=== PATIENT | female | born 1955 | race Caucasian/White ===

== ENCOUNTER 2017-04-16 23:29 | Emergency (ER) | payer BC ==
[~2017-04-16] VITALS: Ht 157.5 cm; Wt 57.6 kg
[~2017-04-16 23:29] MED LIST: CALC-323 PO; ESTR0.3T PO; GLUC1TAB94 PO; MAGIC1 PO; MISC4CAP PO; MULT-506 PO; OXYC-57 PO; PANT40TA PO
[2017-04-16 23:31] VITALS: TEMP 36.3; Ht 157.5 cm; Wt 57.6 kg
[2017-04-16] MEDS ORDERED: KETOROLAC TROMETHAMINE 30 MG/ML VIAL IV STA (23:48)
[2017-04-17] MEDS ORDERED: SODIUM CHLORIDE 0.9% 1000ML 1,000 ML IV ONE
[2017-04-17] MEDS ORDERED: MoRPHine SULFATE 4 MG/ML 1 ML CARP\\VIAL IV ONE
[2017-04-17 00:05] LABS: MANUAL MICROSCOPIC REQUIRED? NO; REVIEW REQ? NO; URINE APPEARANCE CLOUDY (CLEAR); URINE BILIRUBIN NEG (NEG); URINE COLOR YELLOW; URINE EPITHELIAL CELL AUTO >30 /lpf (0-5); URINE NITRITE NEG (NEG); URINE PH 7.5 (4.5-7.5); URINE SPECIFIC GRAVITY 1.019 (1.000-1.030); UROBILINOGEN NEG (NEG); ZZUR CULT IF INDIC CLEAN CATCH NO
[2017-04-17 00:10] LABS: BASO % 0.7 %; BASO ABS # 0.05 K/uL (0-0.2); COMPLETE YES; EOS % 1.6 %; HEMATOCRIT 38.4 % (37-47); IG% 0.1 %; LYMPH % 44.7 %; LYMPH ABS # 3.08 K/uL (1.2-3.4); MEAN CORPUSCULAR HEMOGLOBIN 32.7 pg (25-34); MEAN CORPUSCULAR HGB CONC 34.4 g/dl (32-36); MEAN PLATELET VOLUME 10.2 fL (7.4-10.4); MONO % 6.8 %; NEUT % 46.1 %; PLATELET COUNT 322 K/uL (130-400); RED BLOOD COUNT 4.04 M/uL (4.2-5.4); WHITE BLOOD COUNT 6.89 K/uL (4.8-10.8)
[2017-04-17] MEDS ORDERED: MUPI1CRE TOP (00:10)
[2017-04-17] MEDS ORDERED: HYDROmorphone INJ 0.5 MG/0.5 ML SYR IV STA (00:15)
[2017-04-17 00:35] LABS: BUN/CREATININE RATIO 26.7 (10-20); CALCIUM 9.8 mg/dl (8.5-10.1); CREATININE 0.7 mg/dl (0.60-1.20); POTASSIUM 3.9 mmol/L (3.5-5.1)
[2017-04-17 00:38] LABS: ALB/GLOB RATIO 1.2 (0.9-2)
[2017-04-17] MEDS ORDERED: FLEXERIL HOME PACK 10 MG VIAL PO ONE (02:00)
[2017-04-17] MEDS ORDERED: OXYCODONE IR HOME PACK PO ONE (02:00)
[2017-04-17] MEDS ORDERED: PRED50TA PO (02:11)
[2017-04-17] MEDS ORDERED: CYCL10TA6 PO (02:11)
[2017-04-17] MEDS ORDERED: OXYC1TAB3 PO (02:11)
[2017-04-17 02:35] VITALS: BP 118/80; PULSE 70; O2SAT 99
--- NOTE | 2017-04-17 07:01 | DIAGNOSTIC IMAGING REPORT ---
ABD/PELVIS NO IV OR ORAL CONT CT DOSE: 257.79 mGy.cm HISTORY: Right flank pain Right side back to right lwr abd pain TECHNIQUE: Multiaxial CT images of the abdomen and pelvis were performed without contrast. A dose lowering technique was utilized adhering to the principles of ALARA. COMPARISON STUDY: None. FINDINGS: Lung bases are clear. Operative changes consistent with a prior cholecystectomy. Kidneys negative for calcification or hydronephrosis. Mild postprocedural prominence of the biliary ductal system unchanged from the prior exam. Postoperative changes consistent with laminectomy and fusion of the mid to lower lumbar spine as well as left sacroiliac joint. Bowel pattern overall is nonobstructive. Appendix is removed by history. IMPRESSION: No significant abnormality identified within the abdomen or pelvis. Prior cholecystectomy, appendectomy, and mid to lower lumbar laminectomy and fusion The above report was generated using voice recognition software. It may contain grammatical, syntax or spelling errors. Electronically signed by: Adolfo Siddiqui M.D. 04/17/2017 7:00 AM Dictated Date/Time: 04/17/2017 6:58 AM
--- NOTE | 2017-04-17 22:19 | EMERGENCY ROOM VISIT NOTE ---
History First contact with patient: 23:40 Chief Complaint: FLANK PAIN Stated Complaint: SEVERE PAIN RIGHT SIDE BACK INTO GROIN History of Present Illness The patient is a 61 year old female who presents to the Emergency Room with complaints of right-sided low back pain that radiates into her right groin. The patient states her symptoms began spontaneously around 12 hours ago. She does not recall injury or trauma to explain her symptoms. There is a history of left-sided SI surgical intervention with Dr. Dent. The patient states that she knows that she has right-sided issues, however she is not planning to undergo surgery at the current time. The patient has not taken anything over- the-counter for her symptoms. Her discomfort is constant and does not seem appreciably worse or better with certain position or movements. She has been able to eat and drink as normal. No numbness or paresthesias. No fever or chills. No changes in bowel or bladder control. She rates her discomfort an 8/ 10. Review of Systems More than 10 systems were reviewed and otherwise negative with the exception of history of present illness. Past Medical/Surgical History Medical Problems: (1) Diverticulosis (2) Lumbar stenosis with neurogenic claudication Family History No pertinent family history Social History Smoking Status: Never Smoker Alcohol Use: none Drug Use: none Housing Status: lives with family Current/Historical Medications Scheduled Calcium Citrate-Vitamin D (Citracal Maximum), 2 TAB PO HS Cyclobenzaprine Hcl (Flexeril), 10 MG PO TID Estrogens, Conjugated (Premarin), 0.3 MG PO HS Qhurxvgxyrx-Zwyhhbadknz-Vuemvv (Move Free Joint Health Ad), 1 TAB PO HS Multivitamin (Multivitamin), 1 TAB PO HS Mupirocin Calcium (Topical) (Mupirocin), 1 APPLN TOP UD Oxycodone Immediate Rel Tab (Roxicodone Ir), 1-2 TAB PO Q6 Pantoprazole (Protonix), 40 MG PO BID Prednisone (Prednisone), 50 MG PO DAILY Probiotic Product (Align), 4 MG PO HS Scheduled PRN Diphenhy/Alum/Mag/Sucralfa (Magic Swizzle - Diphenhy/Alum/Mag/Sucralfa), 1 TSP PO Q4H PRN for PRN Physical Exam Vital Signs Date Time Temp Pulse Resp B/P (MAP) Pulse Ox O2 Delivery O2 Flow Rate FiO2 04/17/17 02:35 70 18 118/80 99 Room Air 04/17/17 01:33 62 16 151/76 100 Room Air 04/17/17 00:33 65 16 157/82 100 Room Air 04/16/17 23:31 36.3 82 18 116/77 100 Room Air Physical Exam VITALS: Vitals are noted on the nurse's note and reviewed by myself. Vital signs stable. GENERAL: Well-developed, well-nourished, white female who appears in moderate discomfort secondary to her stated complaint. Patient is cooperative with the examination. . NECK: Supple without nuchal rigidity. No lymphadenopathy. No thyromegaly. Cervical spine is nontender. HEART: Regular rate and rhythm without murmurs gallops or rubs. LUNGS: Clear to auscultation bilaterally without wheezes, rales or rhonchi. No retractions or accessory muscle use. ABDOMEN: Positive normal bowel sounds x 4. Soft, nontender, without masses or organomegaly. No guarding or rebound tenderness. No distinct CVA tenderness MUSCULOSKELETAL: No muscle atrophy, erythema, or edema noted. No significant spinal process or paravertebral tenderness. There is mild left and right SI joint tenderness. Negative straight leg raise. No saddle paresthesias. Full passive range of motion throughout the upper and lower extremities. NEURO: Patient was alert and oriented to person place and time. CN II through XII grossly intact. Deep tendon reflexes 2+ throughout Medical Decision & Procedures ER Provider Diagnostic Interpretation: Preliminary Findings Only See Final Report For Complete Findings CT ABDOMEN & PELVIS Without Contrast: Compared to 04/28/15 No urolithiasis or hydronephrosis. Cholecystectomy may explain extrahepatic biliary dilation, stable in the interval. Colonic diverticula without diverticulitis. Appendix is not identified. No clear inflammation about the tip of the cecum. Hysterectomy Laboratory Results 04/16/17 23:55 Red Blood Count 4.04, Mean Corpuscular Volume 95.0, Mean Corpuscular Hemoglobin 32.7, Mean Corpuscular Hemoglobin Concent 34.4, Mean Platelet Volume 10.2, Neutrophils (%) (Auto) 46.1, Lymphocytes (%) (Auto) 44.7, Monocytes (%) (Auto) 6.8, Eosinophils (%) (Auto) 1.6, Basophils (%) (Auto) 0.7, Neutrophils # (Auto) 3.17, Lymphocytes # (Auto) 3.08, Monocytes # (Auto) 0.47, Eosinophils # (Auto) 0.11, Basophils # (Auto) 0.05 04/16/17 23:55 Test 04/16/17 23:40 04/16/17 23:55 Urine Color YELLOW Urine Appearance CLOUDY (CLEAR) Urine pH 7.5 (4.5-7.5) Urine Specific [place] 1.019 (1.000-1.030) Urine Protein NEG (NEG) Urine Glucose (UA) NEG (NEG) Urine Ketones NEG (NEG) Urine Occult Blood NEG (NEG) Urine Nitrite NEG (NEG) Urine Bilirubin NEG (NEG) Urine Urobilinogen NEG (NEG) Urine Leukocyte Esterase NEG (NEG) Urine WBC (Auto) 1-5 /hpf (0-5) Urine RBC (Auto) 0-4 /hpf (0-4) Urine Hyaline Casts (Auto) 1-5 /lpf (0-5) Urine Epithelial Cells (Auto) >30 /lpf (0-5) Urine Bacteria (Auto) NEG (NEG) White Blood Count 6.89 K/uL (4.8-10.8) Red Blood Count 4.04 M/uL (4.2-5.4) Hemoglobin 13.2 g/dL (12.0-16.0) Hematocrit 38.4 % (37-47) Mean Corpuscular Volume 95.0 fL (80-100) Mean Corpuscular Hemoglobin 32.7 pg (25-34) Mean Corpuscular Hemoglobin Concent 34.4 g/dl (32-36) Platelet Count 322 K/uL (130-400) Mean Platelet Volume 10.2 fL (7.4-10.4) Neutrophils (%) (Auto) 46.1 % Lymphocytes (%) (Auto) 44.7 % Monocytes (%) (Auto) 6.8 % Eosinophils (%) (Auto) 1.6 % Basophils (%) (Auto) 0.7 % Neutrophils # (Auto) 3.17 K/uL (1.4-6.5) Lymphocytes # (Auto) 3.08 K/uL (1.2-3.4) Monocytes # (Auto) 0.47 K/uL (0.11-0.59) Eosinophils # (Auto) 0.11 K/uL (0-0.5) Basophils # (Auto) 0.05 K/uL (0-0.2) RDW Standard Deviation 43.4 fL (36.4-46.3) RDW Coefficient of Variation 12.5 % (11.5-14.5) Immature Granulocyte % (Auto) 0.1 % Immature Granulocyte # (Auto) 0.01 K/uL (0.00-0.02) Anion Gap 7.0 mmol/L (3-11) Est Creatinine Clear Calc Drug Dose 65.9 ml/min Estimated GFR () 107.6 Estimated GFR (Non- 92.9 BUN/Creatinine Ratio 26.7 (10-20) Calcium Level 9.8 mg/dl (8.5-10.1) Total Bilirubin 0.3 mg/dl (0.2-1) Aspartate Amino Transf (AST/SGOT) 14 U/L (15-37) Alanine Aminotransferase (ALT/SGPT) 19 U/L (12-78) Alkaline Phosphatase 84 U/L (45-117) Total Protein 7.0 gm/dl (6.4-8.2) Albumin 3.9 gm/dl (3.4-5.0) Globulin 3.1 gm/dl (2.5-4.0) Albumin/Globulin Ratio 1.2 (0.9-2) Lipase 264 U/L (73-393) Medications Administered Medications (Trade) Dose Ordered Sig/Sylvia Route Start Time Stop Time Status Last Admin Dose Admin Sodium Chloride 1,000 ml @ 999 mls/hr Q1H1M ONCE IV 04/17/17 00:00 04/17/17 01:00 DC 04/17/17 00:00 999 MLS/HR Ketorolac Tromethamine (Toradol Inj) 30 mg NOW STAT IV 04/16/17 23:48 04/16/17 23:50 DC 04/17/17 00:00 30 MG Morphine Sulfate (MoRPHine SULFATE INJ) 4 mg NOW ONCE IV 04/17/17 00:00 04/17/17 00:01 DC 04/17/17 00:00 4 MG Hydromorphone HCl (Dilaudid Inj) 0.5 mg NOW STAT IV 04/17/17 00:15 04/17/17 00:16 DC 04/17/17 00:21 0.5 MG Oxycodone HCl (Roxicodone Immediate Rel 5MG Home Pack) 1 homepack UD ONCE PO 04/17/17 02:00 12 02:01 DC 04/17/17 02:27 1 HOMEPACK Cyclobenzaprine HCl (FLEXERIL 10MG Home Pack) 1 homepack UD ONCE PO 04/17/17 02:00 04/17/17 02:01 DC 04/17/17 02:27 1 HOMEPACK ED Course Physical exam and history were performed. Nursing notes, EMR, and Medication List were personally reviewed. Patient appears to have right-sided back pain that began spontaneously earlier this morning. The patient does not have injury or trauma to explain her symptoms. She does report a history of chronic back pain that has required surgery in the past. The patient does not have a history of stones. IV access was established and labs were obtained. Because of her discomfort I did elect to perform CT scan. The patient was given IV fluids and IV pain medication as above. The patient's blood work is as above and was reviewed. She does not have a significantly elevated white blood cell count, gross anemia, bandemia, or significant electrolyte imbalance. Lipase and transaminases are nondiagnostic. CT scan is as above and is essentially without acute findings. Her remaining blood work and urine is nondiagnostic. The patient felt much better on reevaluation, and was much were comfortable after pain medication here. She continues with some minor discomfort, but repeat back and abdominal exam continues without signs of an acute surgical process. The patient has followed with or the spine in the past, and I suspect her symptoms are musculoskeletal. I do recommend that she follow back with her surgeon. I will give her a course of oxycodone, Flexeril, and prednisone. She was otherwise invited back to the ER with any new, worsening, or concerning symptoms. She is pleased with plan of care was discharged home with family who is acting as the stacker driver. The chart was completed utilizing [employer] Voice Recognition Software. Grammatical errors, random word insertions, pronoun errors, and incomplete sentences are an occasional consequence of this system due to software limitations, ambient noise, and hardware issues. Any formal questions or concerns about the content, text, or information contained within the body of this dictation should be directly addressed to the provider for clarification. . Medical Decision Differential diagnosis: Etiologies such as renal colic, appendicitis, diverticulitis, mesenteric ischemia, aortic pathology, infections, inflammatory bowel disease, PUD, biliary pathology, UTI, as well as others were entertained. Impression Primary Impression: Right-sided back pain Departure Information Dispostion Home / Self-Care Condition GOOD Prescriptions Cyclobenzaprine Hcl (FLEXERIL) 10 Mg Tab 10 MG PO TID for 7 Days, #21 TAB Prov: Chidi Wesis PA-C 04/17/17 Prednisone (Prednisone) 50 Mg Tab 50 MG PO DAILY for 4 Days, #4 TAB Prov: Chidi Weiss PA-C 04/17/17 Oxycodone Immediate Rel Tab (ROXICODONE IR) 5 Mg Tab 1-2 TAB PO Q6 for Pain, #24 TAB Prov: Chidi Weiss PA-C 04/17/17 Referrals eDrek Dent,D.O. Forms HOME CARE DOCUMENTATION FORM, IMPORTANT VISIT INFORMATION Patient Instructions [facility] Additional Instructions You were seen and evaluated today on an emergency basis only. This is not a substitute for, or an effort to provide, complete comprehensive medical care. It is not possible to recognize and treat all injuries or illnesses in a single emergency department visit. For this reason it is recommended that you followup with your surgeon this week for ongoing care and evaluation. For baseline pain relief you may alternate ibuprofen and acetaminophen every 4 hours for pain control. Take 600 mg ibuprofen (Advil) and then 4 hours later take 1000 mg acetaminophen (Tylenol). Do not take more than 3000 mg acetaminophen in a single day. Oxycodone (OxyIR) 5mg: Take ONE or TWO pills every SIX hours for breakthrough pain. Avoid alcohol, operating machinery or dangerous equipment, working on ladders or roofs, DRIVING, or situations where being under the influence may be dangerous. It is recommended to use an dmba-tju-fmgiebz stool softener such as Colace, 100mg twice daily while taking this medication to avoid constipation. Flexeril 1 tablet up to 3 times a day as needed for muscle spasms. No driving, working, or alcohol use with Flexeril. Take prednisone as prescribed You are welcome to return to the emergency department anytime with new, worsening, or concerning symptoms.
== END 2017-04-17 02:37 | disposition home or self-care (01) ==
LOC: C.EDB 23:30
DX: M54.5 Low back pain (principal); R10.31 Right lower quadrant pain; K57.90 Diverticulosis of intestine, part unspecified, without perforation or abscess without bleeding; M48.062 Spinal stenosis, lumbar region with neurogenic claudication

== ENCOUNTER 2017-09-29 10:23 | Day surgery (SDC) | payer BC, OTHER ==
[2017-08-01 07:22] VITALS: BMI 23.0
--- NOTE | 2017-09-20 13:49 | DIAGNOSTIC IMAGING REPORT ---
CHEST 2 VIEWS ROUTINE HISTORY: 62 years-old Female PRE-OP preoperative exam. No acute chest complaints COMPARISON: Chest radiograph 07/30/2015 TECHNIQUE: PA and lateral views of the chest FINDINGS: Cardiomediastinal and hilar silhouettes are within normal limits. Lungs are mildly hyperinflated. There is no pneumothorax, pleural effusion, focal airspace consolidation or overt pulmonary edema. Mild biapical pleural-parenchymal scarring. Degenerative changes of the shoulders and spine. Partially imaged fusion hardware of the lumbar spine. Cholecystectomy clips noted. IMPRESSION: Mild hyperinflation without acute process The above report was generated using voice recognition software. It may contain grammatical, syntax or spelling errors. Electronically signed by: Kana Ashley M.D. 09/20/2017 1:48 PM Dictated Date/Time: 09/20/2017 1:46 PM
[2017-09-20 14:36] LABS: BASO % 0.6 %; BASO ABS # 0.04 K/uL (0-0.2); EOS % 1.5 %; EOS ABS # 0.11 K/uL (0-0.5); HEMATOCRIT 39.6 % (37-47); HEMOGLOBIN 13.7 g/dL (12.0-16.0); IG# 0.01 K/uL (0.00-0.02); LYMPH % 43.9 %; LYMPH ABS # 3.15 K/uL (1.2-3.4); MEAN CELL VOLUME 94.3 fL (80-100); MEAN CORPUSCULAR HEMOGLOBIN 32.6 pg (25-34); MEAN CORPUSCULAR HGB CONC 34.6 g/dl (32-36); MEAN PLATELET VOLUME 10.9 fL (7.4-10.4); MONO % 4.5 %; MONO ABS # 0.32 K/uL (0.11-0.59); NEUT % 49.4 %; NEUT ABS # 3.54 K/uL (1.4-6.5); PLATELET COUNT 363 K/uL (130-400); RED CELL DISTRIBUTION WIDTH CV 12.7 % (11.5-14.5); RED CELL DISTRIBUTION WIDTH SD 43.7 fL (36.4-46.3); WHITE BLOOD COUNT 7.17 K/uL (4.8-10.8)
[2017-09-20 15:07] LABS: CALCIUM 8.9 mg/dl (8.5-10.1); CREATININE 0.68 mg/dl (0.60-1.20); POTASSIUM 3.8 mmol/L (3.5-5.1)
[~2017-09-29] VITALS: Ht 157.5 cm; Wt 58.2 kg
[~2017-09-29 10:23] MED LIST changes: +ACETAMINOPHEN 500 MG TAB PO SCH; +ATROPINE SULFATE 0.1 MG/ML 5ML SYR IV PRN; +CLINDAMYCIN 600 MG/54 ML D5W 54 ML IV SCH; +CeleBREX 200 MG CAP PO SCH; +EpHEDrine SULFATE INJ 50 MG/ML AMP IV PRN; +FENTANYL CITRATE INJ 50 MCG/1 ML 2 ML VIAL IV PRN; +GABAPENTIN 600 MG PO SCH; +HYDROmorphone INJ 0.5 MG/0.5 ML SYR IV PRN; +LABETALOL HCL IV 5 MG/ML 20ML IV PRN; +LACTATED RINGER'S 1000ML 1,000 ML IV SCH; +ONDANSETRON INJ 2 MG/ML 2 ML VIAL IV PRN; -OXYC-57 PO; +PHENYLEPHRINE 100MCG/ML 5ML SYR IV PRN; +PROMETHAZINE HCL INJ 12.5 MG in SODIUM CHLORIDE 0.9% 50ML 50 ML IV PRN; +VANCOMYCIN 1GM/270ML NSS IV SCH
[2017-09-29 10:45] VITALS: BP 129/69; PULSE 68; TEMP 36.4; O2SAT 98; Ht 157.5 cm; Wt 58.2 kg
[2017-09-29] MEDS ORDERED: NURSING VERBAL MED ORDER ONE (11:15)
--- NOTE | 2017-09-29 13:57 | History & Physical Bridge Note ---
H&P Re-Evaluation Bridge Note: I have examined the patient, reviewed the History & Physical and in the interval since the performance of the History & Physical I have noted the following changes of clinical significance: No changes noted
--- NOTE | 2017-09-29 13:58 | History and Physical ---
History & Physical Date September 29, 2017. Chief Complaint Sacroiliitis History of Present Illness The patient is a 62 year old female with complaints of right sacroiliitis Past Medical/Surgical History Medical Problems: (1) Diverticulosis (2) Lumbar stenosis with neurogenic claudication Additional History Hepatic Disease: No Endocrine Disorder: No Kidney Disease: No Hypertension: No Heart Disease: No Bleeding Tendencies: No Infectious Diseases: No Allergies Coded Allergies: Amoxicillin (Verified Allergy, Severe, ANAPHYLAXIS, 09/29/17) Clavulanic Acid (Verified Allergy, Severe, ANAPHYLAXIS, 09/29/17) Metronidazole (Verified Adverse Reaction, Mild, VOMITING, 09/29/17) Sulfa Antibiotics (Verified Adverse Reaction, Mild, VOMITING, 09/29/17) Home Medications Scheduled Calcium Citrate-Vitamin D (Citracal Maximum), 2 TAB PO HS Estrogens, Conjugated (Premarin), 0.3 MG PO HS Xefbiymwgeo-Ymrmwesbuff-Npokdz (Move Free Joint Health Ad), 1 TAB PO HS Multivitamin (Multivitamin), 1 TAB PO HS Pantoprazole (Protonix), 40 MG PO BID Probiotic Product (Align), 4 MG PO HS Scheduled PRN Diphenhy/Alum/Mag/Sucralfa (Magic Swizzle - Diphenhy/Alum/Mag/Sucralfa), 1 TSP PO Q4H PRN for PRN Physical Examination Skin: warm/dry, no rash Eyes: normal inspection, EOMI, sclerae normal ENT: normal ENT inspection, pharynx normal Head: normocephalic, atraumatic Neck: supple, no adenopathy, trachea midline Respiratory/Chest: lungs clear, normal breath sounds, no respiratory distress Cardiovascular: regular rate, rhythm, no edema, no murmur Abdomen / GI: normal bowel sounds, non tender Back: normal inspection Extremities: normal inspection, normal range of motion Neurologic/Psych: no motor/sensory deficits, alert, normal reflexes, oriented x 3 Diagnosis Right sacroiliitis Plan of Treatment Right SI joint fusion
[2017-09-29] MEDS ORDERED: BACITRACIN 50000 UNIT VIAL ONE (14:40)
[2017-09-29] MEDS ORDERED: PROPOFOL IV EMULSION 10 MG/ML 20 ML VIAL ONE (14:53)
[2017-09-29] MEDS ORDERED: FENTANYL CITRATE INJ 50 MCG/1 ML 2 ML VIAL ONE ×2 (14:53→16:09)
[2017-09-29] MEDS ORDERED: ONDANSETRON INJ 2 MG/ML 2 ML VIAL ONE (14:53)
[2017-09-29] MEDS ORDERED: ROCURONIUM BROMIDE 10 MG/ML 5 ML VIAL ONE (14:53)
[2017-09-29] MEDS ORDERED: LIDOCAINE HCL 2% 2 ML VIAL (20MG/ML) ONE (14:53)
[2017-09-29] MEDS ORDERED: DEXAMETHASONE SOD INJ 4 MG/ML VIAL ONE (14:53)
[2017-09-29] MEDS ORDERED: MIDAZOLAM HCL 1 MG/ML 2ML VIAL ONE (14:53)
[2017-09-29] MEDS ORDERED: BUPIVACAINE 0.5 % 5 MG/1 ML PF 10ML VIAL ONE (15:02)
[2017-09-29] MEDS ORDERED: EpINEphrine INJ 1MG/ML AMP 1 MG/ML AMP ONE (15:02)
[2017-09-29] MEDS ORDERED: NEOSTIGMINE METHYLSULFATE 1 MG/ML 10ML VIAL ONE (15:31)
[2017-09-29] MEDS ORDERED: GLYCOPYRROLATE INJ 0.2 MG/ML VIAL ONE (15:31)
--- NOTE | 2017-09-29 15:47 | [facility] Operative Report ---
Operative Report Operative Date September 29, 2017. Pre-Operative Diagnosis Sacroiliitis Post-Operative Diagnosis Sacroiliitis Procedure(s) Performed Right SI joint fusion Surgeon Jailene Utilization Reviewer Surgeon(sRyan Connelly Estimated Blood Loss 10 Description of Procedure Patient was met with preoperatively case discussed all questions addressed. After informed consent obtained patient was taken to the operative suite underwent intubation and placed in a prone position on the Edd table chest pad and hip bolsters. This time the right upper buttock and thigh was prepped and draped in the normal sterile fashion. With the assistance of fluoroscopy and AP and lateral outlet and lateral planes were identified the right SI joint. A proximally 3 cm incision was placed along the posterior sacral slope on the right upper buttock. And then placed a K wire through the incision across the proximal portion of the right SI joint. Verify our position in AP lateral inlet outlet views. I then dilated up to 10 mm cannula. I drilled across the K wire and placed a 45 mm DARDEN-coated slotted screw filled with local autograft and BMP across the joint. An outrigger guide was then placed to guide a distal K wire. This was done with fluoroscopic visualization. Again I dilated to a 10 mm cannula drilled across the SI joint and placed a 40 mm DARDEN- coated slotted screw and filled with DBM and autograft. A third the distal screw was then placed in the same fashion. The screw was 35 mm in size again DARDEN -coated with DBM and autograft. All screws demonstrated excellent alignment and fit. Incision was then copiously irrigated closed with subcutaneous Vicryl 4 Monocryl for fashion closure Steri-Strips sterile dressings placed. Patient will continue to PACU stable discrete please note Jonatan Connelly was present throughout the entire procedure involved the patient positioning complex portions of the surgery and fashion closure. I attest to the content of the Intraoperative Record and any orders documented therein. Any exceptions are noted below.
[2017-09-29] MEDS ORDERED: OXYC-57 PO (15:49)
--- NOTE | 2017-09-29 15:50 | Discharge Instructions ---
Discharge Instructions Date of Service September 29, 2017. Admission Reason for Admission: Si Joint Dysfunction Discharge Discharge Diagnosis / Problem: sacralilitis Discharge Goals Goal(s): Decrease discomfort Activity Recommendations Activity Limitations: as noted below Exercise/Sports Limitations: until after follow-up appointment Shower/Bathe: may shower/bathe in 3 days Weightbearing Status: Right toe touch . Instructions / Follow-Up Instructions / Follow-Up follow up in 2 weeks, TTWB with walker RLE Current Hospital Diet Patient's current hospital diet: Discharge Diet Recommended Diet: Regular Diet Procedures Procedures Performed: Right SI joint fusion Pending Studies Studies pending at discharge: no Medical Emergencies . Who to Call and When: Medical Emergencies: If at any time you feel your situation is an emergency, please call 911 immediately. . Non-Emergent Contact Non-Emergency issues call your: Primary Care Provider . "Provider Documentation" section prepared by Derek Dent. .
[2017-09-29] MEDS ORDERED: OXYCODONE HCL IR 5 MG TAB (IMMEDIATE RELEASE) PO PRN (16:00)
[2017-09-29] MEDS ORDERED: ACETAMINOPHEN 650 MG SUPP PR PRN (16:00)
[2017-09-29] MEDS ORDERED: HYDROmorphone INJ 0.5 MG/0.5 ML SYR IV PRN (16:00)
[2017-09-29] MEDS ORDERED: ACETAMINOPHEN 325 MG TAB PO PRN (16:00)
[2017-09-29] MEDS ORDERED: KETOROLAC TROMETHAMINE 15 MG/ML VIAL IV. PRN (16:00)
--- NOTE | 2017-09-29 16:02 | DIAGNOSTIC IMAGING REPORT ---
INTRAOPERATIVE SACRUM 3 VIEWS CLINICAL HISTORY: RT SACROILIAC JOINT FUSION COMPARISON STUDY: Outside conventional radiographic study dated 10/17/1969 FINDINGS: 97 seconds of fluoroscopic time was utilized. 2 intraoperative fluoroscopic spot images are provided for interpretation. There are postsurgical changes of prior lower lumbar discectomies and spinal fusions. 3 horizontally oriented cannulated right sacroiliac screws are visualized. 2 horizontally oriented left sacroiliac screws are visualized. IMPRESSION: Intraoperative radiographs during sacroiliac fusion as described above. Electronically signed by: Corby Barnes M.D. 09/29/2017 4:01 PM Dictated Date/Time: 09/29/2017 3:59 PM
[2017-09-29] MEDS ORDERED: KETOROLAC TROMETHAMINE 30 MG/ML VIAL ONE (16:20)
[2017-09-29] MEDS ORDERED: ACETAMINOPHEN 1000 MG/100 ML IV IV ONE ×2 (16:36→16:45)
[2017-09-29] MEDS ORDERED: ATROPINE SULFATE 0.1 MG/ML 5ML SYR IV PRN (16:45)
[2017-09-29] MEDS ORDERED: EpHEDrine SULFATE INJ 50 MG/ML AMP IV PRN (16:45)
[2017-09-29 17:10] VITALS: BP 121/63; PULSE 59; TEMP 36.4; O2SAT 93
[2017-09-29 17:45] VITALS: BP 127/66; PULSE 70; TEMP 36.3; O2SAT 92
--- NOTE | 2017-09-29 17:56 | Anesthesiology Progress Note ---
Anesthesia Post Op Note Date & Time September 29, 2017 at 17:56 Vital Signs Pain Intensity: 8 Vital Signs Past 12 Hours Date Time Temp Pulse Resp B/P (MAP) Pulse Ox O2 Delivery O2 Flow Rate FiO2 09/29/17 17:00 36.6 64 13 116/59 96 Nasal Cannula 2 09/29/17 16:50 74 20 119/57 98 Nasal Cannula 2 09/29/17 16:40 61 12 119/63 96 Nasal Cannula 2 09/29/17 16:30 65 15 129/74 91 Room Air 09/29/17 16:20 64 14 131/70 100 Oxymask 10 09/29/17 16:10 67 17 148/77 100 Oxymask 10 09/29/17 16:03 36.2 77 16 160/80 100 Oxymask 10 09/29/17 10:45 36.4 68 20 129/69 (89) 98 Room Air Notes Mental Status: alert / awake / arousable, participated in evaluation Nausea / Vomiting: improving with treatment Pain: adequately controlled Airway Patency, RR, SpO2: stable & adequate BP & HR: stable & adequate Hydration State: stable & adequate Anesthetic Complications: no major complications apparent
== END 2017-09-29 18:11 | disposition home or self-care (01) ==
LOC: C.ACU 10:23
PROVIDERS: ATTEND Orthopaedic Surgery Orthopaedic Surgery of the Spine
DX: M46.1 Sacroiliitis, not elsewhere classified (principal); Z90.89 Acquired absence of other organs; Z90.710 Acquired absence of both cervix and uterus; Z90.49 Acquired absence of other specified parts of digestive tract; Z88.1 Allergy status to other antibiotic agents; Z88.2 Allergy status to sulfonamides; Z87.891 Personal history of nicotine dependence

== ENCOUNTER 2021-11-22 08:17 | Observation (INO) ==
--- NOTE | 2021-11-04 10:28 | PAT Medication Instructions ---
Medication Instructions Date of Service November 04, 2021 Home Medications Bifidobacterium infantis 4 mg capsule (Align) 4 mg PO HS calcium phosphate 250 mg-vit D3 12.5 mcg (500 unit) chewable tablet (Citracal-D3 Gummies) 1 tab PO QPM cartilage 40 mg-collagen II-boron 5 mg-hyaluronate sod 3.3 mg tablet (Move Free Ultra Triple Action (boron)) 1 tab PO QPM conjugated estrogens 0.3 mg tablet (Premarin) 0.3 mg PO QPM multivit with bmaqcnnm-vmkw-MF-lutein 8 mg iron-400 mcg-300 mcg tablet (Centrum Silver Women) 1 tab PO QPM pantoprazole 20 mg tablet,delayed release (Protonix) 20 mg PO QPM aspirin 81 mg capsule 81 mg PO HS atorvastatin 20 mg tablet 20 mg PO HS ASK your prescriber and surgeon conjugated estrogens 0.3 mg tablet (Premarin) 0.3 mg PO QPM aspirin 81 mg capsule 81 mg PO HS STOP taking 2 weeks before surgery cartilage 40 mg-collagen II-boron 5 mg-hyaluronate sod 3.3 mg tablet (Move Free Ultra Triple Action (boron)) 1 tab PO QPM DO NOT take the morning of surgery calcium phosphate 250 mg-vit D3 12.5 mcg (500 unit) chewable tablet (Citracal-D3 Gummies) 1 tab PO QPM Take evening before surgery Bifidobacterium infantis 4 mg capsule (Align) 4 mg PO HS multivit with amxtwxdd-erin-UO-lutein 8 mg iron-400 mcg-300 mcg tablet (Centrum Silver Women) 1 tab PO QPM pantoprazole 20 mg tablet,delayed release (Protonix) 20 mg PO QPM atorvastatin 20 mg tablet 20 mg PO HS NOTHING TO EAT OR DRINK AFTER MIDNIGHT. Other Notes If you have any questions please call us at [phone] or [phone] or [phone] or [phone]
--- NOTE | 2021-11-08 09:11 | Anesthesiology Consultation ---
Date of Service November 08, 2021 Assessment & Plan (1) Encounter for pre-operative examination: - Pt will be returning another day with stimulator remote to complete EKG. Awaiting EKG. - murmur: Pt denies previous known hx/echo. Discussed case overall and including echo with Dr. Wong who advised PCP obtain echocardiogram prior to surgery. Optimization note completed to be faxed to PCP. He advised nothing additional needed from anesthesia standpoint overall or regarding carotid disease. - surgeon ordered medical clearance and echocardiogram. - neurostimulator device: Pt made aware to bring remote to hospital DOS. - COVID screening: Per assessment on 11/08/2021: Travel screen negative, no known COVID-19 positive contacts or current COVID-19 related symptoms in past 2 weeks. Pt vaccinated. Surgeon arranging preop COVID testing, scheduled 11/18/2021. Awaiting results. Chart Review Chart Review: Pending: Refer to Additional Notes / Consult section and Patient seen in Pre Admission Testing Teaching & Discussion Pre-Anesthesia Teaching/Discussion Notes: Instructed NPO after midnight before surgery, except medications with 15 cc of water. Medication instructions provided according to the PAT guidelines. History Surgery Operation Date: 11/22/21 13:25 Proposed Procedures p C5-C7 Anterior Cervical Discectomy and Fusion Spinal Cord Monitoring - Momo Dent, DO Height/Weight Height: 5 ft 1.5 in Weight: 56.5 kg Allergies Allergy/AdvReac Type Severity Reaction Status Date / Time amoxicillin Allergy Severe ANAPHYLAXIS Verified 12/11/20 10:46 clavulanic acid Allergy Severe ANAPHYLAXIS Verified 12/11/20 10:46 metronidazole AdvReac Mild VOMITING Verified 12/11/20 10:46 Sulfa (Sulfonamide AdvReac Mild VOMITING Verified 12/11/20 10:46 Antibiotics) Medications Home Medications Medication Instructions Recorded Confirmed Last Taken Bifidobacterium infantis 4 mg 4 mg PO HS 03/25/19 11/04/21 12/10/20 18:00 capsule (Align) calcium phosphate 250 mg-vit D3 1 tab PO QPM 03/25/19 11/04/21 12/06/20 19:00 12.5 mcg (500 unit) chewable tablet (Citracal-D3 Gummies) cartilage 40 mg-collagen II-boron 1 tab PO QPM 03/25/19 11/04/21 11/23/20 19:00 5 mg-hyaluronate sod 3.3 mg tablet (Move Free Ultra Triple Action (boron)) conjugated estrogens 0.3 mg tablet 0.3 mg PO QPM 03/25/19 11/04/21 12/06/20 1 9:00 (Premarin) multivit with 1 tab PO QPM 03/25/19 11/04/21 12/06/20 19:00 vljusqcl-ctal-JO-lutein 8 mg iron-400 mcg-300 mcg tablet (Centrum Silver Women) pantoprazole 20 mg tablet,delayed 20 mg PO QPM 03/25/19 11/04/21 12/06/20 19:00 release (Protonix) aspirin 81 mg capsule 81 mg PO HS 11/04/21 11/04/21 Unknown atorvastatin 20 mg tablet 20 mg PO HS 11/04/21 11/04/21 Unknown Past Medical History Medical History Carotid arterial disease Left ICA 50-69%; right ICA <50% on 11/2020 carotid doppler Chronic back pain Degenerative disc disease GERD (gastroesophageal reflux disease) Stable with medicine Hiatal hernia current Lumbar stenosis Neurostimulator device in situ lower back - placed by Dr. Dent 11/2020 Patient denies h/o stroke, seizures, heart attack, heart failure, DM, HTN, blood clots or blood transfusions. Exercise / Class Metabolic Activity II 4-5 Yardwork/Stairs/Walk up hill (denies CP or SOB with 1 FOS) Past Family History Family History Mother FHx: lung cancer Father FHx: lung cancer Brother FHx: kidney cancer Brother Family history of diabetes mellitus Mother Family history of diabetes mellitus Other FHx: cancer Past Surgical History Surgical History Family history of reaction to anesthesia Father- "slow to wake", PONV History of back surgery X5> L5-S1. History of esophagogastroduodenoscopy (EGD) History of implanted electronic device neurostimulator in lower back - Dr. Dent 12/11/2020: Grade 1 view, MAC3, ETT 7.0 atraumatic x 1. Trial on 12/07/20: Grade 2 view, MAC3, ETT 7.5. No postop issues per anesthesia progress note. History of tonsillectomy and adenoidectomy History of tooth extraction with implants Hx of appendectomy Hx of cholecystectomy Hx of colonoscopy Hx of resection of large bowel from diverticulitis Hx of total hysterectomy S/P fusion of sacroiliac joint 05/06/19: Grade 3 view, MAC3, ETT 7.0. No postop issues per anesthesia progress note. Past Anesthesia History No Hx of Anesthesia Complications and Other (FHx) History of PONV No Hx of PONV and No Hx of Motion Sickness Social History Smoking Status: Former smoker tobacco type: cigarettes Smoking cigarettes per day: 1/2 pk/day Do You Dip or Chew Tobacco: No Smoking End Date: ~20 years ago Hx Alcohol Use: Yes Alcohol type: wine alcohol intake frequency: holidays/special occasions only Hx Substance Use: No substance use type: does not use Review of Systems Patient denies chest pain, shortness of breath, dyspnea on exertion, snoring, witnessed apneas, dizziness, lightheadedness, syncope, fever, chills, cough, wheezing, or palpitations. Physical Exam Vital Signs Vitals BP 127/76 P 80 TEMP 98.0 SP02 98% on RA RESP 17 Physical TMD 3.5 finger breaths Mallampati Score 1 Dentition: intact, multiple implants-pt unsure; crowns-upper front; denies chipped or loose teeth, bridges Lungs: normal respiratory effort. Clear throughout to auscultation, no adventitious breath sounds Cardiac: regular rate and rhythm, 2/6 systolic murmur Carotid arteries: R bruit, < 50% stenosis BRENDEN and 50-69% LICA on 11/2020 carotid doppler Lab Results Anesthesia Preop Results Results Anesthesia Widget: WBC 6.60 K/uL (4.8-10.8) 11/08/21 Hgb 13.1 g/dL (12.0-16.0) 11/08/21 Hct 39.0 % (37-47) 11/08/21 Plt 375 K/uL (130-400) 11/08/21 Na 138 mmol/L (136-145) 11/08/21 K 4.0 mmol/L (3.5-5.1) 11/08/21 Cl 103 mmol/L (98-107) 11/08/21 CO2 28 mmol/L (21-32) 11/08/21 BUN 11 mg/dl (6-23) 11/08/21 Creat 0.69 mg/dl (0.6-1.2) 11/08/21 Glucose Level 107 mg/dl (70-99(Fasting)) H 11/08/21 PT 10.0 Seconds (9.0-12.0) 11/08/21 PTT 26.8 Seconds (21.0-31.0) 11/08/21 INR 0.9 (0.9-1.1) 11/08/21 Urine Color Yellow 11/08/21 Urine Appearance Clear (Clear) 11/08/21 Urine pH 7.0 (4.5-7.5) 11/08/21 Urine Specific Onward 1.003 (1.000-1.030) 11/08/21 Urine Protein Negative (Negative) 11/08/21 Urine Glucose (UA) Negative (Negative) 11/08/21 Urine Ketones Negative (Negative) 11/08/21 Urine Blood Negative (Negative) 11/08/21 Urine Nitrite Negative (Negative) 11/08/21 Urine Bilirubin Negative (Negative) 11/08/21 Urine Urobilinogen Negative (Negative) 11/08/21 Urine Leukocyte Esterase Negative (Negative) 11/08/21 Blood Type A Negative 11/08/21 Antibody Screen NEGATIVE 11/08/21 Testing Chest X-Ray Date: 11/08/21 The cardiomediastinal and hilar silhouettes are within normal limits. Atherosclerosis of the aorta. Hyperinflation. No pneumothorax, pleural effusion, airspace consolidation or overt pulmonary edema. Degenerative changes of the shoulders and spine. Partially imaged lumbar spinal fusion hardware. Cholecystectomy. A spinal stimulator device is noted with leads overlying the midthoracic spine. The leads appear intact. IMPRESSION: No acute process. Other Testing Carotid doppler 12/02/20 L ICA 50-69% stenosis R ICA < 50% stenosis
[~2021-11-22 08:17] MED LIST changes: -ATROPINE SULFATE 0.1 MG/ML 5ML SYR IV PRN; -CALC-323 PO; -CLINDAMYCIN 600 MG/54 ML D5W 54 ML IV SCH; +CLINDAMYCIN/D5W 600 MG/50 ML BAG **Premixed Bag IV SCH; -ESTR0.3T PO; -EpHEDrine SULFATE INJ 50 MG/ML AMP IV PRN; -FENTANYL CITRATE INJ 50 MCG/1 ML 2 ML VIAL IV PRN; +GABAPENTIN 300 MG CAP PO SCH; -GABAPENTIN 600 MG PO SCH; -GLUC1TAB94 PO; -HYDROmorphone INJ 0.5 MG/0.5 ML SYR IV PRN; -LABETALOL HCL IV 5 MG/ML 20ML IV PRN; -LACTATED RINGER'S 1000ML 1,000 ML IV SCH; +LR 15ML/HR IV SCH; -MAGIC1 PO; +MIDAZOLAM HCL 1 MG/ML 2ML VIAL ONE; -MISC4CAP PO; -MULT-506 PO; -ONDANSETRON INJ 2 MG/ML 2 ML VIAL IV PRN; -PANT40TA PO; -PHENYLEPHRINE 100MCG/ML 5ML SYR IV PRN; -PROMETHAZINE HCL INJ 12.5 MG in SODIUM CHLORIDE 0.9% 50ML 50 ML IV PRN; +PROPOFOL IV EMULSION 10 MG/ML 100 ML VIAL IV ONE; -VANCOMYCIN 1GM/270ML NSS IV SCH; +fentaNYL citrate 100 MCG/2 ML VIAL ONE
--- NOTE | 2021-11-22 09:26 | History & Physical Bridge Note ---
Date of Service November 22, 2021 History & Physical Bridge Note I have examined the patient, reviewed the History & Physical and in the interval since the performance of the History & Physical I have noted the following changes of clinical significance: no changes noted
--- NOTE | 2021-11-22 09:27 | History & Physical Report ---
Date of Service November 22, 2021 Assessment & Plan (1) Cervical stenosis of spinal canal: History of Present Illness Chief Complaint: Neck and arm pain Primary Care Provider: Maria Luz Hood DO This is a 66-year-old female known to us with presents with chronic persistent neck and arm pain after failing course of nonoperative care she is here for surgical invention. Allergies Allergy/AdvReac Type Severity Reaction Status Date / Time amoxicillin Allergy Severe ANAPHYLAXIS Verified 11/22/21 08:28 clavulanic acid Allergy Severe ANAPHYLAXIS Verified 11/22/21 08:28 metronidazole AdvReac Mild VOMITING Verified 11/22/21 08:28 Sulfa (Sulfonamide AdvReac Mild VOMITING Verified 11/22/21 08:28 Antibiotics) Home Medications Medication Instructions Recorded Confirmed Type Bifidobacterium infantis 4 mg 4 mg PO HS 03/25/19 11/22/21 History capsule (Align) calcium phosphate 250 mg-vit D3 1 tab PO QPM 03/25/19 11/22/21 History 12.5 mcg (500 unit) chewable tablet (Citracal-D3 Gummies) cartilage 40 mg-collagen II-boron 1 tab PO QPM 03/25/19 11/22/21 History 5 mg-hyaluronate sod 3.3 mg tablet (Move Free Ultra Triple Action (boron)) conjugated estrogens 0.3 mg tablet 0.3 mg PO QPM 03/25/19 11/22/21 History (Premarin) multivit with 1 tab PO QPM 03/25/19 11/22/21 History srlfefvy-jhmk-MB-lutein 8 mg iron-400 mcg-300 mcg tablet (Centrum Silver Women) pantoprazole 20 mg tablet,delayed 20 mg PO QPM 03/25/19 11/22/21 History release (Protonix) aspirin 81 mg capsule 81 mg PO HS 11/04/21 11/22/21 History atorvastatin 20 mg tablet 20 mg PO HS 11/04/21 11/22/21 History Past Med/Surg History Medical History Carotid arterial disease Left ICA 50-69%; right ICA <50% on 11/2020 carotid doppler Chronic back pain Degenerative disc disease GERD (gastroesophageal reflux disease) Stable with medicine Hiatal hernia current Lumbar stenosis Neurostimulator device in situ lower back - placed by Dr. Dent 11/2020 Surgical History Family history of reaction to anesthesia Father- "slow to wake", PONV History of back surgery X5> L5-S1. History of esophagogastroduodenoscopy (EGD) History of implanted electronic device neurostimulator in lower back - Dr. Dent 12/11/2020: Grade 1 view, MAC3, ETT 7.0 atraumatic x 1. Trial on 12/07/20: Grade 2 view, MAC3, ETT 7.5. No postop issues per anesthesia progress note. History of tonsillectomy and adenoidectomy History of tooth extraction with implants Hx of appendectomy Hx of cholecystectomy Hx of colonoscopy Hx of resection of large bowel from diverticulitis Hx of total hysterectomy S/P fusion of sacroiliac joint 05/06/19: Grade 3 view, MAC3, ETT 7.0. No postop issues per anesthesia progress note. Family History Mother FHx: lung cancer Father FHx: lung cancer Brother FHx: kidney cancer Brother Family history of diabetes mellitus Mother Family history of diabetes mellitus Other FHx: cancer Social History Smoking Status: Former smoker Cigarettes Per Day: 1/2 pk/day; Smoking End Date: ~20 years ago; Second Hand Exposure: No; Do You Dip or Chew Tobacco: No; Tobacco Cessation Education Requested by Patient: No Hx Alcohol Use: Yes Alcohol type: wine Hx Substance Use: No Preferred Language: Martiniquais Communication Ability: Effective Customer Service Supervisor Required: No Beliefs That Will Affect Care: None Current Living Situation: Spouse Other Information That Helps Us Care for You: No Feels Safe at Home: Yes Safety Concerns: Feels Safe At This Time Assistive Devices: Glasses Physical Exam Physical Exam: Patient is alert and oriented Heart regular rhythm Lungs clear Results & Data Results & Data ([facility]) Vital Signs (Past 12 Hours) Vital Signs Temp Pulse Resp BP Pulse Ox 11/22/21 08:39 36.8 C 67 18 125/62 99
[2021-11-22] MEDS ORDERED: ATROPINE SULFATE 0.1 MG/ML 10ML SYR IV PRN (09:28)
[2021-11-22] MEDS ORDERED: PROMETHAZINE HCL 12.5 MG in SODIUM CHLORIDE 0.9% 50 ML IV PRN ×2 (09:28→13:15)
[2021-11-22] MEDS ORDERED: HYDROmorphone INJ 2 MG/ML SYR/VIAL IV PRN (09:28)
[2021-11-22] MEDS ORDERED: ONDANSETRON INJ 2 MG/ML 2 ML VIAL IV PRN ×2 (09:28→13:15)
[2021-11-22] MEDS ORDERED: ePHEDrine sulfate 50 MG/ML AMP IV PRN (09:28)
--- NOTE | 2021-11-22 09:39 | History & Physical Bridge Note ---
Date of Service November 22, 2021 History & Physical Bridge Note I have examined the patient, reviewed the History & Physical and in the interval since the performance of the History & Physical I have noted the following changes of clinical significance: no changes noted Anterior cervical discectomy and fusion C5-C7
[2021-11-22] MEDS ORDERED: LIDOCAINE 2% 2 ML VIAL/AMP(20MG/ML) INFIL ONE (10:13)
[2021-11-22] MEDS ORDERED: ONDANSETRON INJ 2 MG/ML 2 ML VIAL ONE (10:13)
[2021-11-22] MEDS ORDERED: LARYING-O-JET KIT (LTA) ONE (10:13)
[2021-11-22] MEDS ORDERED: PROPOFOL IV EMULSION 10 MG/ML 20 ML VIAL IV ONE (10:13)
[2021-11-22] MEDS ORDERED: DEXAMETHASONE SOD INJ 4 MG/ML VIAL ONE (10:13)
[2021-11-22] MEDS ORDERED: ePHEDrine sulfate 50 MG/ML AMP ONE (10:13)
[2021-11-22] MEDS ORDERED: SUCCINYLCHOLINE CHLORIDE 20 MG/ML 10 ML VIAL IV ONE (10:13)
[2021-11-22] MEDS ORDERED: ROCURONIUM BROMIDE 10 MG/ML 5 ML VIAL IV ONE (10:13)
[2021-11-22] MEDS ORDERED: PHENYLEPHRINE 100MCG/ML 5ML SYR ONE (10:13)
[2021-11-22] MEDS ORDERED: HYDROmorphone INJ 2 MG/ML SYR/VIAL ONE (10:13)
[2021-11-22] MEDS ORDERED: FLOSEAL HEMOSTATIC MATRIX 10ML TOP ONE (11:10)
--- NOTE | 2021-11-22 11:20 | Operative Report ---
Post Operative Report Pre & Post Diagnosis Operation Date: 11/22/21 09:55 Pre-Op Diagnosis: Spinal stenosis with radiculopathy Post-Op Diagnosis: Same I identified the patient and participated in the time-out.: Yes Procedure Operation Date: 11/22/21 09:55 Actual Procedures #1 anterior cervical discectomy with bilateral foraminotomies C5-C6 C6-C7. #2 anterior cervical arthrodesis C5-C6 C6-C7. #3 placement of 6 mm spiral cage C5- C6 and 8 mm cage at C6-C7 both filled with I factor. #4 application of vergara plate and screws from C5-C7. Surgeon Derek Dent, Operating Room Tech Jill Gamez Estimated Blood Loss 10 Findings Consistent with Post-Op Diagnosis Specimens None Indications This is a 66-year-old female well-known to me the presents with above-mentioned diagnosis of course of nonoperative care she is here for surgical invention. Description of Procedure Patient was met with identified informed consent obtained. Patient was then taken to the operative suite underwent ablation placed in a supine position the Edd table head [employer] head. All bony prominences well-padded eyes inspected to ensure no external pressure placed upon the. This point the anterior cervical spine was prepped and draped no sterile fashion. With the assistance of fluoroscopy identify the C6 vertebral body and a transverse incision was placed along the right anterior aspect of the cervical spine overlying this region. Blunt dissection with assistance of bipolar Cardizem p erformed down to and exposing the anterior cervical spine from C5-C7. Several 10 retractors were placed. Then performed a complete discectomy of C5-C6 out to the uncovertebral joints bilaterally. Childs distracting pins were utilized to assist in visualization. Removed all posterior annular fibers longitudinal ligament bilateral foraminotomies performed in the 6 mm spiral cage with I factor tapped in position. Then proceeded to C6-C7. Again complete discectomy performed out to the uncovertebral joints bilaterally. Childs distracting pins again utilized. Removed all posterior annular fibers longitudinal ligament bilateral foraminotomies performed. A 8 mm spiral cage filled I factor was then tapped in position. Distracting apparatus was removed all anterior osteophytes burred to smooth cortical surface and a 5 complete and screws applied with the assistance of fluoroscopy. The incision was then copiously irrigated explored to ensure no damage to surrounding structures remaining bleeding. 10 round PARISH drain inserted. The incision was then closed with 2 Vicryl in a fashion of 4 Monocryl for final skin closure. Steri-Strip sterile dressings placed. Patient waken taken to PACU stable condition. Please note spinal cord monitoring was utilized at the procedure no changes noted. Lastly Jill Gamez was present at the entire surgery and while the patient positioning complex portions of the surgery and fascial closure. I attest to the content of the Intraoperative Record and any orders documented therein. Any exceptions are noted below.
--- NOTE | 2021-11-22 11:47 | Fluoroscopy Report ---
FL cervical 2-3V CLINICAL HISTORY: ACDF C5-C7 COMPARISON STUDY: None. FLUOROSCOPY TIME: 8 seconds. FINDINGS: 2 fluoroscopic spot images of the cervical spine demonstrate anterior cervical discectomy a nd fusion from C5 through C7. The hardware is intact. There is a surgical sponge anterior to the fusi on site. IMPRESSION: Fluoroscopic assistance provided for C5-C7 ACDF. ACT 112: Negative or not required by law. Electronically signed by: Allen Mcelroy M.D. 11/22/2021 11:46 AM
[2021-11-22] MEDS: fentaNYL citrate 100 MCG/2 ML VIAL IV PRN ×3 (11:57→12:24)
--- NOTE | 2021-11-22 12:55 | Anesthesiology Progress Note ---
Date of Service November 22, 2021 Anesthesia Post Procedure Vital Signs Vital Signs: Temp Pulse Pulse Resp BP BP Pulse Ox 11/22/21 12:45 73 16 123/69 97 11/22/21 12:35 97.5 F L 65 20 118/71 95 11/22/21 12:25 69 18 135/68 98 11/22/21 12:15 71 16 140/72 92 11/22/21 12:05 68 18 139/74 99 11/22/21 11:55 66 14 137/87 100 11/22/21 11:45 70 12 152/73 H 100 11/22/21 11:35 78 16 139/73 100 11/22/21 11:27 96.8 F L 83 14 130/77 100 11/22/21 08:39 98.2 F 67 18 125/62 99 Pain Intensity Left Posterior Neck: Pain Intensity: 7 Anterior Neck: Pain Intensity: 4 Transfer of Care Handoff Completed per policy Notes Mental Status: alert / awake / arousable and participated in evaluation Patient Amnestic to Procedure: Yes Nausea / Vomiting: adequately controlled Pain: adequately controlled Airway Patency, RR, SpO2: stable & adequate BP & HR: stable & adequate Hydration State: stable & adequate Anesthetic Complications: no major complications apparent and Pt Satisfied with anesthetic care
[2021-11-22] MEDS ORDERED: DO NOT ADMINISTER FLU VACCINE PRN (13:15)
[2021-11-22] MEDS ORDERED: ACETAMINOPHEN 500 MG TAB PO PRN (13:15)
[2021-11-22] MEDS ORDERED: DO NOT ADMINISTER PNEUMOCOCCAL VACCINE PRN (13:15)
[2021-11-22] MEDS ORDERED: MAGNESIUM HYDROXIDE SUSP 30 ML UDC PO PRN (13:15)
[2021-11-22] MEDS ORDERED: LORazepam 0.5 MG in SYRINGE 0.25 ML IV PRN (13:15)
[2021-11-22] MEDS ORDERED: ACETAMINOPHEN 1,000 MG/100 ML VIAL IV PRN (13:15)
[2021-11-22] MEDS ORDERED: diphenhydrAMINE Capsule 25 MG CAP PO PRN (13:15)
[2021-11-22] MEDS ORDERED: RACEPINEPHRINE 2.25% NEBU SOLN 0.5 ML VIAL INH PRN (13:15)
[2021-11-22] MEDS ORDERED: METOCLOPRAMIDE HCL INJ 5 MG/ML 2 ML VIAL IV PRN (13:15)
[2021-11-22] MEDS ORDERED: ALUMINUM/MAGNESIUM SUSP 30 ML UDC PO PRN (13:15)
[2021-11-22] MEDS ORDERED: NALOXONE HCL 0.4 MG/1 ML VIAL/CARP IV PRN (13:15)
[2021-11-22] MEDS ORDERED: bisacodyL 10 MG SUPP PR PRN (13:15)
[2021-11-22] MEDS ORDERED: SOD PHOSPHATE/SOD BIPHOSPHATE ENEMA 132 ML BTL PR PRN (13:15)
[2021-11-22] MEDS ORDERED: ONDANSETRON 4 MG OD TAB PO PRN (13:15)
[2021-11-22] MEDS ORDERED: LACTATED RINGER'S 1,000 ML IV SCH (13:15)
[2021-11-22] MEDS ORDERED: dexAMETHasone 8 MG in SYRINGE 0 ML IV PRN (13:15)
[2021-11-22] MEDS ORDERED: LORazepam 0.5 MG TAB PO PRN (13:15)
[2021-11-22] MEDS ORDERED: FAMOTIDINE 20 MG TAB PO PRN (13:15)
[2021-11-22] MEDS ORDERED: HYDROmorphone INJ 0.5 MG/0.5 ML SYR IV PRN (13:15)
[2021-11-22] MEDS ORDERED: hydrOXYzine HCl 25 MG TAB PO PRN (13:15)
[2021-11-22] MEDS ORDERED: traMADol HCL 50 MG TABLET PO PRN (13:15)
--- NOTE | 2021-11-22 14:39 | Hospitalist Consultation ---
Date of Consultation November 22, 2021 Assessment & Plan (1) Cervical stenosis of spinal canal: POD #0 - anterior cervical discectomy and fusion. - Pain control, DVT prophylaxis, activity per primary service - Encourage incentive spirometry - Labs in AM (2) GERD (gastroesophageal reflux disease): Confirmed PPI dosing with patient - taking pantoprazole 40 mg BID, not 20 mg daily. Orders adjusted (3) Carotid arterial disease: Updated med rec with patient and in chart. Continue home medications as appropriate. Pt seen and reviewed with collaborating physician, Dr. Arguelles. Plan of care discussed and as outlined above. Thank you for this consultation. We will continue to follow the patient with you. [facility] available 05/12 via [employer]. Please don't hesitate to reach out with questions. Domingo Cantrell PA-C Supervising Physician Co-Signing Physician Notes Pt was seen and examined. Agreed with Connor Pierre exam, assessment and plan. 66 yo Female with PMH of cervical spinal stenosis, asymptomatic carotid stenosis, GERD, IBS, and diverticulosis, S/P anterior cervical discectomy and fusion performed by Dr. Dent. No postop complication. Continue pain control. Continue monitor H/H. PT/OT eval. Continue monitor closely. MD Blane History of Present Illness Reason for Consultation: Post-operative Medical Mangement Requesting Physician: Dr. Derek Dent Attending Physician: Derek Dent DO History of Present Illness This is a 66 y/o female with a PMH of cervical spinal stenosis, asymptomatic carotid stenosis, GERD, IBS, and diverticulosis who underwent anterior cervical discectomy and fusion today by Dr. Dent and for whom we have been consulted for post-operative medical management. Pt reports that pre-operatively she had significant pain with tingling and intermittent weakness in the left upper extremity. She is left-hand dominant. Currently her pain is controlled on medication. She feels like the tingling has improved. She does complaint of a sore throat but denies difficulty swallowing or dry mouth - she is tolerating s ips of water without difficulty. She is still somewhat drowsy from the anesthesia but does wake up to answer questions. She denies chest pain, palpitations, dyspnea, cough, N/V/D, DARDEN, or dizziness. Acid reflux has been well-controlled outpatient on BID PPI therapy. Allergies Allergy/AdvReac Type Severity Reaction Status Date / Time amoxicillin Allergy Severe ANAPHYLAXIS Verified 11/22/21 08:28 clavulanic acid Allergy Severe ANAPHYLAXIS Verified 11/22/21 08:28 metronidazole AdvReac Mild VOMITING Verified 11/22/21 08:28 Sulfa (Sulfonamide AdvReac Mild VOMITING Verified 11/22/21 08:28 Antibiotics) Home Medications Medication Instructions Recorded Confirmed Type Bifidobacterium infantis 4 mg 4 mg PO HS 03/25/19 11/22/21 History capsule (Align) calcium phosphate 250 mg-vit D3 1 tab PO QPM 03/25/19 11/22/21 History 12.5 mcg (500 unit) chewable tablet (Citracal-D3 Gummies) cartilage 40 mg-collagen II-boron 1 tab PO QPM 03/25/19 11/22/21 History 5 mg-hyaluronate sod 3.3 mg tablet (Move Free Ultra Triple Action (boron)) conjugated estrogens 0.3 mg tablet 0.3 mg PO QPM 03/25/19 11/22/21 History (Premarin) multivit with 1 tab PO QPM 03/25/19 11/22/21 History ovwhmifr-sijm-XE-lutein 8 mg iron-400 mcg-300 mcg tablet (Centrum Silver Women) aspirin 81 mg capsule 81 mg PO HS 11/04/21 11/22/21 History atorvastatin 20 mg tablet 20 mg PO HS 11/04/21 11/22/21 History bupropion HCl 150 mg tablet,12 hr 150 mg PO BID 11/22/21 11/22/21 History sustained-release oxycodone 5 mg tablet 5 mg PO Q6H PRN #20 tab 11/22/21 Rx pantoprazole 40 mg tablet,delayed 40 mg PO BID 11/22/21 11/22/21 History release tramadol 50 mg tablet 50 mg PO Q6H PRN #30 tab 11/22/21 Rx Patient History Medical History Carotid arterial disease Left ICA 50-69%; right ICA <50% on 11/2020 carotid doppler Chronic back pain Degenerative disc disease GERD (gastroesophageal reflux disease) Stable with medicine Hiatal hernia current Lumbar stenosis with neurogenic claudication Neurostimulator device in situ lower back - placed by Dr. Dent 11/2020 Sacroiliitis Surgical History Family history of reaction to anesthesia Father- "slow to wake", PONV History of back surgery X5> L5-S1. History of esophagogastroduodenoscopy (EGD) History of implanted electronic device neurostimulator in lower back - Dr. Dent 12/11/2020: Grade 1 view, MAC3, ETT 7.0 atraumatic x 1. Trial on 12/07/20: Grade 2 view, MAC3, ETT 7.5. No postop issues per anesthesia progress note. History of partial colectomy History of tonsillectomy and adenoidectomy History of tooth extraction with implants Hx of appendectomy Hx of cholecystectomy Hx of colonoscopy Hx of resection of large bowel from diverticulitis Hx of total hysterectomy S/P fusion of sacroiliac joint 05/06/19: Grade 3 view, MAC3, ETT 7.0. No postop issues per anesthesia progress note. Family History Mother FHx: lung cancer Father FHx: lung cancer Brother FHx: kidney cancer Brother Family history of diabetes mellitus Mother Family history of diabetes mellitus Other FHx: cancer Social History Smoking Status: Former smoker Cigarettes Per Day: 1/2 pk/day; Smoking End Date: ~20 years ago; Second Hand Exposure: No; Do You Dip or Chew Tobacco: No; Tobacco Cessation Education Requested by Patient: No Hx Alcohol Use: Yes Alcohol type: wine Hx Substance Use: No Preferred Language: [place] Communication Ability: Effective Desizing Pad Operator Required: No Beliefs That Will Affect Care: None Current Living Situation: Spouse Other Information That Helps Us Care for You: No Feels Safe at Home: Yes Safety Concerns: Feels Safe At This Time Assistive Devices: Glasses Review of Systems Review of Systems: All systems reviewed & are unremarkable except as noted in HPI & below Constitutional: no fever, no chills, no sweats and no fatigue Eyes: no diplopia Ear, Nose, Mouth, Throat: + sore throat; no nasal congestion and no nasal discharge Respiratory: no cough and no dyspnea Cardiovascular: no chest pain, no palpitations and no lightheadedness Gastrointestinal: no abdominal pain, no nausea and no vomiting Genitourinary: no dysuria and no hematuria Musculoskeletal: + neck pain Integumentary: no rash and no yellowing of the skin Neurologic: no generalized weakness and no headache(s) Psychiatric: no depression and no anxiety Physical Exam Constitutional: well developed and well nourished; no acute distress Eyes: + anicteric sclerae ENMT: external ear and nose normal, oropharynx normal Neck: hard cervical collar in place, dressing C/D/I with drain in place with sanguinous drainage Respiratory: no respiratory distress and no labored breathing Auscultation: lungs clear to auscultation bilaterally; no rales, no rhonchi and no wheezes Cardiovascular: Rate/Rhythm: regular rate and regular rhythm Vessels: dorsalis pedis pulses present and radial pulses present Extremities: no pedal edema Gastrointestinal (Abdomen): Inspection/Auscultation: normal bowel sounds; abdomen not distended Percussion/Palpation: abdomen soft; abdomen nontender Musculoskeletal: Head/Neck/Chest: normocephalic and head atraumatic Skin: no jaundice Neurologic: moves all extremities; 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 and equal bilaterally Psychiatric: A+Ox3, euthymic affect Results & Data Results & Data ([facility]) Vital Signs (Past 12 Hours) Vital Signs Temp Pulse Pulse Resp BP BP Pulse Ox 11/22/21 14:29 72 18 97 11/22/21 14:05 11/22/21 14:04 36.6 C 16 128/74 98 11/22/21 13:35 36.4 C L 20 131/75 94 11/22/21 13:05 36.5 C 16 133/74 99 11/22/21 12:45 73 16 123/69 97 11/22/21 12:35 36.4 C L 65 20 118/71 95 11/22/21 12:25 69 18 135/68 98 11/22/21 12:15 71 16 140/72 92 11/22/21 12:05 68 18 139/74 99 11/22/21 11:55 66 14 137/87 100 11/22/21 11:45 70 12 152/73 H 100 11/22/21 11:35 78 16 139/73 100 11/22/21 11:27 36.0 C L 83 14 130/77 100 11/22/21 08:39 36.8 C 67 18 125/62 99 Pulse Ox 11/22/21 14:29 11/22/21 14:05 98 11/22/21 14:04 11/22/21 13:35 11/22/21 13:05 11/22/21 12:45 11/22/21 12:35 11/22/21 12:25 11/22/21 12:15 11/22/21 12:05 11/22/21 11:55 11/22/21 11:45 11/22/21 11:35 11/22/21 11:27 11/22/21 08:39 Laboratory Results 11/22/21 08:38 SARS-CoV-2, RNA, NAAT NEGATIVE Medications Administered Acetaminophen (Acetaminophen 500 Mg Tab) 1,000 mg PO PREOP GAEL Stop: 11/22/21 18:00 Last Admin: 11/22/21 08:54 Dose: 1,000 mg Documented by: [id number] Celecoxib (Celebrex 200 Mg Cap) 200 mg PO PREOP GAEL Stop: 11/22/21 18:00 Last Admin: 11/22/21 08:54 Dose: 200 mg Documented by: [id number] Fentanyl Citrate (Fentanyl Citrate 100 Mcg/2 Ml Vial) 50 mcg IV Q5M PRN PRN Reason: PACU Use Only-Pain Stop: 11/22/21 17:28 Last Admin: 11/22/21 12:24 Dose: 50 mcg Documented by: [id number] Admin: 11/22/21 12:05 Dose: 50 mcg Documented by: [id number] Admin: 11/22/21 11:57 Dose: 50 mcg Documented by: [id number] Gabapentin (Gabapentin 300 Mg Cap) 300 mg PO PREOP GAEL Stop: 11/22/21 18:00 Last Admin: 11/22/21 08:54 Dose: 300 mg Documented by: [id number] Hydromorphone HCl (Hydromorphone Inj 0.5 Mg/0.5 Ml Syr) 0.5 mg IV Q3H PRN PRN Reason: MODERATE Pain (Scale 4,5,6) & Pre PT Stop: 12/06/21 13:14 Last Admin: 11/22/21 13:57 Dose: 0.5 mg Documented by: [id number] Lactated Ringer's (Lr) 1,000 mls @ 15 mls/hr IV .Q24H GAEL Stop: 11/23/21 05:59 Last Infusion: 11/22/21 09:50 Dose: 0 mls/hr Documented by: [id number] Admin: 11/22/21 08:54 Dose: 15 mls/hr Documented by: [id number] Lactated Ringer's (Lr) 1,000 mls @ 100 mls/hr IV .Q10H GAEL Stop: 12/22/21 13:14 Last Admin: 11/22/21 13:51 Dose: 100 mls/hr Documented by: [id number] Discontinued Medications Clindamycin Phosphate (Cleocin/D5w) 600 mg in 50 mls @ 100 mls/hr IV PREOP GAEL Stop: 11/22/21 06:29 Last Infusion: 11/22/21 13:29 Dose: 0 mls/hr Documented by: [id number] Admin: 11/22/21 09:50 Dose: 100 mls/hr Documented by: [id number] Miscellaneous ( Floseal Hemostatic Matrix 10ml) 10 ml TOP ONCE ONE Stop: 11/22/21 11:11 Last Admin: 11/22/21 11:10 Dose: 10 ml Documented by: [id number]
[2021-11-22] MEDS: oxyCODONE HCL IR 5 MG TAB (IMMEDIATE RELEASE) PO PRN ×2 (16:10→21:41)
[2021-11-22] MEDS: CLINDAMYCIN 600 MG in DEXTROSE 5% 50 ML IV SCH (16:51)
[2021-11-22] MEDS ORDERED: LACTATED RINGER'S 1,000 ML IV ONE (19:19)
[2021-11-22] MEDS: HYDROmorphone INJ 1 MG/ML SYRINGE IV PRN (19:48)
[2021-11-22] MEDS ORDERED: ASPIRIN 81 MG ECTAB PO SCH (21:00)
[2021-11-22] MEDS ORDERED: DOCUSATE SODIUM/SENNA 50/8.6MG TAB PO SCH (21:00)
[2021-11-22] MEDS ORDERED: ADVANCED PROBIOTIC 1250 MG CAPSULE PO SCH (21:00)
[2021-11-22] MEDS ORDERED: PANTOprazole 40 MG TAB PO SCH (21:00)
[2021-11-22] MEDS ORDERED: CALCIUM 600MG + VIT D 400 IU TAB PO SCH (21:00)
[2021-11-22] MEDS ORDERED: ATORVASTATIN 20 MG TAB PO SCH (21:00)
[2021-11-22] MEDS ORDERED: ESTROGENS, CONJUGATED 0.3 MG TAB PO SCH (21:00)
[2021-11-22] MEDS: PANTOprazole 40 MG TAB PO SCH (21:35)
[2021-11-22] MEDS: buPROPion SR 150 MG TABCR PO SCH (21:42)
[2021-11-23] MEDS: CLINDAMYCIN 600 MG in DEXTROSE 5% 50 ML IV SCH (01:08)
[2021-11-23] MEDS: HYDROmorphone INJ 1 MG/ML SYRINGE IV PRN (03:15)
[2021-11-23 05:32] LABS: Basophils # (auto) 0.02 K/uL (0-0.2); Basophils % (auto) 0.2 %; Eosinophils # (auto) 0.02 K/uL (0-0.50); Eosinophils % (auto) 0.2 %; Hematocrit (blood only) 33.9 % (34.1-44.9); Hemoglobin 11.5 g/dl (12.0-16.0); Immature Granulocytes # (auto) 0.02 K/uL (0.00-0.02); Immature Granulocytes % (auto) 0.2 %; Lymphocytes % (auto) 17.4 %; Mean Corpuscular Hemoglobin 32.1 pg (25.0-34.0); Mean Corpuscular Hgb Conc 33.9 g/dL (32.0-36.0); Mean Corpuscular Volume 94.7 fL (80.0-100.0); Mean Platelet Volume 11.1 fL (9.4-12.3); Monocytes # (auto) 0.75 K/uL (0.24-0.82); Monocytes % (auto) 7.2 %; Neutrophils # (auto) 7.74 K/uL (1.4-6.5); Neutrophils % (auto) 74.8 %; Platelet Count 267 K/uL (130-400); RDW Coefficient of Variation 11.9 % (11.5-14.5); RDW Standard Deviation 41.7 fL (36.4-46.3); Red Blood Count 3.58 M/uL (3.93-5.22); White Blood Count 10.35 K/ul (4.8-10.8)
[2021-11-23] MEDS ORDERED: POLYETHYLENE (MIRALAX) 17 GM PACK PO SCH (06:00)
[2021-11-23 06:09] LABS: BUN Creatinine Ratio 14.8 (10-20); Calcium 8.6 mg/dl (8.5-10.1); Creatinine Clr Calc Pharmacy 78.1 ml/min; Est GFR (African American) 113.2 ml/min; Est GFR (Non-African American) 97.6 ml/min; Potassium 3.8 mmol/L (3.5-5.1)
[2021-11-23] MEDS ORDERED: dexAMETHasone 6 MG in SYRINGE 0 ML IV SCH (09:00)
[2021-11-23] MEDS: oxyCODONE HCL IR 5 MG TAB (IMMEDIATE RELEASE) PO PRN (09:09)
[2021-11-23] MEDS: PANTOprazole 40 MG TAB PO SCH (09:11)
[2021-11-23] MEDS: buPROPion SR 150 MG TABCR PO SCH (09:11)
--- NOTE | 2021-11-23 09:57 | Discharge Summary ---
Date of Service November 23, 2021 Admission HPI Per Admitting Provider This is a 66-year-old female known to us with presents with chronic persistent neck and arm pain after failing course of nonoperative care she is here for surgical invention. Principal Diagnosis Cervical radiculopathy Discharge Data Allergies Allergy/AdvReac Type Severity Reaction Status Date / Time amoxicillin Allergy Severe ANAPHYLAXIS Verified 11/22/21 08:28 clavulanic acid Allergy Severe ANAPHYLAXIS Verified 11/22/21 08:28 metronidazole AdvReac Mild VOMITING Verified 11/22/21 08:28 Sulfa (Sulfonamide AdvReac Mild VOMITING Verified 11/22/21 08:28 Antibiotics) Consultations 11/22/21 13:15 Consult Hospitalist Routine Procedures Performed Operation Date: 11/22/21 09:55 Actual Procedures p C5-C7 Anterior Cervical Discectomy and Fusion Spinal Cord Monitoring(Not Applicable) - Derek Dent DO Ordered Studies 11/22/21 09:55 FL cervical 2-3V Routine Hospital Course (1) Cervical stenosis of spinal canal: Patient 1 anterior cervical discectomy and fusion tolerated this well was taken to orthopedic for postoperative. Postop day 1 she was up and ambulating swallowing well no hoarseness. Arm symptoms markedly improved. Excellent strength testing. PARISH drain decreasing appropriately. Subsequently discharged home. Discharge orders instructions from the chart for further review. Total Time Total Time Spent Total Time Spent (In Minutes): 20 minutes Discharge Plan Discharge Items Patient Disposition: Home - Self-Care Reason For Visit: Spinal Stenosis, Cervical Region Discharge Diagnosis: cervical stenosis Activity: As commented below Non-emergency contact: Primary Care Provider Call non-emergency contact if: you have any medication questions Follow-up/Referrals: Maria Luz Hood DO [Primary Care Provider] - Diet: Regular Addtl Attending Provider Instructions: ACTIVITY RECOMMENDATIONS: SELF CARE INSTRUCTIONS AFTER CERVICAL FUSIONS 1. No smoking. Smoking drastically decreases the chance of a solid fusion. 2. No bending, lifting more than 5 pounds, or twisting (roll like a log when turning in bed). 3. You may shower 3 days after surgery. Thoroughly dry wound. Do not soak in the tub. 4. Cervical collar: Must be worn at all times including sleeping. You may remove the brace only to bath, eat and if you are sitting in a recliner. 5. Please walk as much as you can for exercise. Gradually increase the distance that you walk as your endurance increases. SPECIAL CARE INSTRUCTIONS: VERY IMPORTANT TO READ AND REVIEW A. Do not take any anti-inflammatory medications (i.e. Indocin, Advil, Aspirin, Naprosyn, Aleve, Motrin, etc.) as these may inhibit the chance of a solid fusion. Tylenol is okay to take. B. Your surgical incision has been closed with a cosmetic suture under the skin that will dissolve in about 6 weeks. In 14 days, you can use a pair of clean scissors and cut the suture that is left outside of the skin at the ends of your incision. C. Complications are uncommon, but please contact us if you have any signs or symptoms of: 1. wound infection (fever higher than 102.5 degrees F, redness, separation of wound, drainage, or increasing pain from the incision) 2. blood clots in legs (pain, swelling, redness and warmth in legs) 3. urinary tract infection (fever higher than 102.5 degrees, burning upon urination or increased frequency of urination) 4. nerve problems (inability to walk on your toes or heels, numbness, loss of bowel or bladder control) 5. any other symptoms that concern you. D. Please call the office at if you have any concerns or questions about your operation or recovery. MANAGING PAIN AFTER SPINAL SURGERY 1. Narcotic medication is intended for short-term use and will be provided for surgical pain. Surgical pain usually lasts for a period of 4-6 weeks. Narcotic medication includes Percocet, Vicodin, Darvocet, Tylenol #3 or Lortab. 2. Longer-term pain is more appropriately treated with non-narcotic medication such as Tylenol ES. 3. Muscle spasm is not appropriately treated with narcotics. Muscle relaxers such as Soma, Flexeril or Skelaxin can be used along with Tylenol ES. 4. Remember that we all live with some "aches and pains". This is not unusual or uncommon after an injury or as we get older. 5. We will provide appropriate medication within the normal guidelines of their prescribed use. We will also be very cautious and aware of potential abuse and extended duration of patients' medication needs. 6. Please allow 2-3 days to process refills. Prescriptions will not be mailed but must be picked up at the office. FOLLOW UP VISIT: Keep your scheduled follow-up appointment. Any questions, please call the office at . Pending Studies at Discharge: No Stand-Alone Forms: My [facility], Smoking Cessation Medications and DC Order Prescriptions: New tramadol 50 mg tablet 50 mg PO Q6H PRN (Reason: pain, moderate) Qty: 30 RF: 0 oxycodone 5 mg tablet 5 mg PO Q6H PRN (Reason: pain, severe) Qty: 20 RF: 0 Continued Premarin 0.3 mg Tablet 0.3 mg PO QPM RF: 0 Align 4 mg Capsule 4 mg PO HS RF: 0 Centrum Silver Women 8 mg iron-400 mcg-300 mcg Tablet 1 tab PO QPM RF: 0 calcium phosphate-vitamin D3 [Citracal-D3 Gummies] 250 mg calcium- 500 unit Tablet,Chewable 1 tab PO QPM RF: 0 [id number]-qhybrwds-ayv-hyalur [Move Free Ultra Triple Action] 40-5-3.3 mg Tablet 1 tab PO QPM RF: 0 atorvastatin 20 mg Tablet 20 mg PO HS RF: 0 aspirin 81 mg Capsule 81 mg PO HS RF: 0 bupropion HCl 150 mg tablet sustained-release 12 hr 150 mg PO BID RF: 0 pantoprazole 40 mg tablet,delayed release (DR/EC) 40 mg PO BID RF: 0 Discharge Orders: Discharge Order (Routine); Ordered 11/23/21 Ordered By: Derek Dent Admission Data Admit Date/Time: 11/22/21 11:25 Attending Provider: Derek Dent Admit Provider: Derek Dent Primary Care Provider: Maria Luz Hood Other Providers: Devon Marks
== END 2021-11-23 12:01 | disposition home or self-care (01) ==
LOC: ASU 08:17 → INTOOBSV 11:25 → 3E 11:25